=== PATIENT | female | born 1975 | race Caucasian/White ===

== ENCOUNTER 2019-11-18 23:34 | Emergency (ER) | payer OTHER ==
--- NOTE | 2019-11-19 00:23 | PDOC ---
Rapid Medical Evaluation Medical Evaluation: Allergies Allergy/AdvReac Type Severity Reaction Status Date / Time No Known Allergies Allergy Verified 03/04/15 23:46 11/19/19 00:17 HPI: COVID-19 CDC guideline data points: The patient is a 44 y.o F presents with no known exposure to COVID-19 with associated symptoms of fever, dry cough, SOB, sore thorot , nausea, no vomiting no anorexia, no diarrheax 2 days, complicated by this/these comorbidities: . ROS: NEGATIVE: difficulty breathing, shortness of breath, chest pain, lightheadedness, dizziness, nausea, vomiting and diarrhea. Other 12 point ROS reviewed and negative. Exam: General: NAD, Well-Appearing, Awake, Alert Oriented x3. Vital signs stable. ENT: No rhinorrhea or nasal congestion. Neck: FROM, no midline tenderness. Lungs: Clear to auscultation bilaterally without wheezes, rhonchi or rales. Normal excursion. Patient is able to speak in full sentences. Heart: HR: Regular rhythm, S1-S2 present, no murmurs rubs or gallops. Abdomen: Non-distended. MSK/Extremities: No decrease ROM, No obvious deformities. No obvious cyanosis noted. Neuro: Normal Gait, Cranial Nerves II through XII Grossly Intact. Skin: No obvious rashes, bruising. Color Normal Appearing. Assessment/Plan: Cough/fever, consistent with COVID symptoms Patient has a history of this/these comorbidities: none, denies recent travel and known COVID exposure. Patient does not meet testing criteria at this time. Treatment: d/c home vs stable Discharge Disposition - Diagnosis Viral illness - Discharge Dispostion Disposition: HOME Condition at time of disposition: Stable - Referrals Referrals: Brandon Maciel MD [Staff Physician] - - Patient Instructions Printed Discharge Instructions: [facility]-Coronavirus Instructions, [facility] COVID-19 Isolation Protocol Additional Instructions: follow up with the clinic in 1-2 days. Symptoms are COVID like you should Self isolated for 14 days. Return to the ED for worsening symptoms, respiratory distress - Post Discharge Activity
[2019-11-19 01:09] VITALS: BP 135/90; PULSE 62; TEMP 99.5
== END 2019-11-19 01:26 ==
LOC: JER 23:34
DX: B34.9 Viral infection, unspecified (principal)
CPT/HCPCS: 99282-25

== ENCOUNTER 2020-03-01 23:09 | Emergency (ER) | payer OTHER ==
[2020-03-01 23:33] VITALS: BP 130/74; PULSE 57; TEMP 98.1; BMI 26.0
--- NOTE | 2020-03-02 00:09 | PDOC ---
History of Present Illness - General Chief Complaint: Edema Stated Complaint: SWOLLEN FINGER - History of Present Illness Initial Comments: 03/02/20 00:25 44y previously healthy F presenting w sudden onset L 3rd finger swelling/pain distal to ring after 9pm today. Had ring on for long time. Denies numbness, still able to move finger. Past History - Medical History Allergies/Adverse Reactions: Allergies Allergy/AdvReac Type Severity Reaction Status Date / Time No Known Allergies Allergy Verified 03/04/15 23:46 Home Medications: Ambulatory Orders Cephalexin [Keflex] 500 mg PO QID #28 capsule 03/05/15 Pantoprazole Sodium [Protonix -] 40 mg PO DAILY #14 tablet.ec 03/05/15 Cephalexin Monohydrate [Keflex -] 500 mg PO BID #14 capsule 03/02/20 Cephalexin [Keflex] 500 mg PO BID 7 Days #14 capsule 03/02/20 COPD: No - Psycho-Social/Smoking History Smoking History: Never smoked Have you smoked in the past 12 months: No - Substance Abuse Hx (Audit-C & DAST Scrn) How often the patient has a drink containing alcohol: Never Score: In Men: 4 or > Positive; In Women: 3 or > Positive: 0 Screen Result (Pos requires Nsg. Audit-10AR): Negative Review of Systems - Review of Systems Constitutional: No: Chills, Fever HEENTM: No: Eye Pain, Nose Congestion Respiratory: No: Cough, Shortness of Breath Cardiac (ROS): No: Chest Pain, Palpitations ABD/GI: No: Constipated, Diarrhea, Nausea, Vomiting : No: Burning, Dysuria Musculoskeletal: No: Back Pain, Joint Pain Integumentary: No: Bruising, Flushing Neurological: No: Headache, Seizure Psychiatric: No: Anxiety, Depression Endocrine: No: Intolerance to Cold, Intolerance to Heat Hematologic/Lymphatic: No: Anemia, Blood Clots *Physical Exam - Vital Signs Last Vital Signs Temp Pulse Resp BP Pulse Ox 98.1 F 57 L 18 130/74 100 03/01/20 23:31 03/01/20 23:31 03/01/20 23:31 03/01/20 23:31 03/01/20 23:31 - Physical Exam General Appearance: Yes: Nourished, Appropriately Dressed, Mild Distress HEENT: positive: EOMI, KARRIE, Normal Voice, Hearing Grossly Normal. negative: Scleral Icterus (R), Scleral Icterus (L) Respiratory/Chest: positive: Lungs Clear, Normal Breath Sounds. negative: Chest Tender, Respiratory Distress Cardiovascular: positive: Regular Rhythm, S1, S2, Bradycardia. negative: Edema, Murmur Gastrointestinal/Abdominal: positive: Normal Bowel Sounds, Flat, Soft. negative: Tender, Organomegaly Integumentary: positive: Other (L 3rd finger, red, midly tender, swollen, intact sensation to touch, able to move phalanges) Neurologic: positive: Fully Oriented, Alert, Normal Response, Responsive Medical Decision Making - Medical Decision Making 03/02/20 00:26 44y previously healthy F presenting w sudden onset L 3rd finger swelling/pain distal to ring after 9pm today. Removed finger w ring cutter. Neurovascular intact. DC home w keflex, ice, PCP f/u Discharge - Discharge Information Problems reviewed: Yes Clinical Impression/Diagnosis: Swelling of left middle finger Condition: Improved Disposition: HOME - Additional Discharge Information Prescriptions: Cephalexin [Keflex] 500 mg PO BID 7 Days #14 capsule Cephalexin Monohydrate [Keflex -] 500 mg PO BID #14 capsule - Follow up/Referral - Patient Discharge Instructions Additional Instructions: The ring was cut off your finger Apply ice to your finger Take the prescribed keflex as directed Follow up with your primary care doctor --- El anillo te verónica el dedo Aplica hielo en tu dedo [place] el keflex prescrito segn las indicaciones [place]eshia un seguimiento con dumont mdico de atencin primaria. - Post Discharge Activity
[2020-03-02] MEDS ORDERED: CEPHALEXIN MONOHYDRATE 500 MG CAPSULE (UD) PO ONE (00:15)
[2020-03-02] MEDS ORDERED: CEPHALEXIN MONOHYDRATE 500 MG CAPSULE (UD) ONE (00:18)
--- NOTE | 2020-03-02 00:23 | PDOC ---
Attending Attestation - Resident Resident Name: Jann Le - ED Attending Attestation I have performed the following: I have examined & evaluated the patient, The case was reviewed & discussed with the resident, I agree w/resident's findings & plan - HPI HPI: 03/02/20 00:19 Pt comes with left middle ring finger with a ring that is stuck on it. Finger is swollen as pt . has been tugging on it or a few days hoping to dislodge the ring. - Physicial Exam PE: 03/02/20 00:22 Normal exam Left middle ring finger no lacerations. - Medical Decision Making 03/02/20 04:54 ring removed with ring cutter FROM of the middle finger pt has good capillary refill in all fingers 03/02/20 04:54 Pt will follow with PMD; home with Abx Discharge - Discharge Information Problems reviewed: Yes Clinical Impression/Diagnosis: Swelling of left middle finger Condition: Improved Disposition: HOME - Additional Discharge Information Prescriptions: Cephalexin [Keflex] 500 mg PO BID 7 Days #14 capsule Cephalexin Monohydrate [Keflex -] 500 mg PO BID #14 capsule - Follow up/Referral - Patient Discharge Instructions Additional Instructions: The ring was cut off your finger Apply ice to your finger Take the prescribed keflex as directed Follow up with your primary care doctor --- El anillo te verónica el dedo Aplica hielo en tu dedo [place] el keflex prescrito segn las indicaciones [place] un seguimiento con dumont mdico de atencin primaria. - Post Discharge Activity
== END 2020-03-02 00:27 | disposition home or self-care (01) ==
LOC: JER 23:09
DX: M79.89 Other specified soft tissue disorders (principal)
CPT/HCPCS: 99283-25

== ENCOUNTER 2021-03-24 21:31 | Emergency (ER) | payer OTHER ==
[2021-03-24 21:45] VITALS: BP 128/88; PULSE 71; TEMP 97; BMI 22.1
[2021-03-24] MEDS ORDERED: KETOROLAC TROMETHAMINE 30 MG/1 ML VIAL IVPUSH ONE (23:09)
[2021-03-24] MEDS ORDERED: KETOROLAC TROMETHAMINE 30 MG/1 ML VIAL ONE (23:27)
[2021-03-24 23:47] LABS: BASO % 0.8 % (0-2.0); HEMATOCRIT 39.9 % (32.4-45.2); HEMOGLOBIN 13.5 GM/dL (10.7-15.3); LYMPH % 44.8 % (8-40); MCH 28.4 pg (25.7-33.7); MCHC 33.8 g/dl (32.0-36.0); MEAN CELL VOLUME 84.1 fl (80-96); MEAN PLT VOLUME 9.2 fl (7.5-11.1); MONO % 7.4 % (3.8-10.2); PLATELET COUNT 184 10^3/uL (134-434); RBC 4.74 M/mm3 (3.60-5.2); RDW 13.6 % (11.6-15.6); WHITE BLOOD COUNT 7.8 K/mm3 (4.0-10.0)
[2021-03-24 23:57] LABS: CHLORIDE 108 mmol/L (98-107); SODIUM 140 mmol/L (136-145)
[2021-03-24 23:59] LABS: ALBUMIN 3.8 g/dl (3.4-5.0); ANION GAP 7 MMOL/L (8-16); BLOOD UREA NITROGEN 10.6 mg/dL (7-18); CALCIUM 8.5 mg/dL (8.5-10.1); CO2 25 mmol/L (21-32); GLUCOSE,RANDOM 90 mg/dL (74-106)
[2021-03-25 00:02] LABS: CREATININE 0.5 mg/dL (0.55-1.3); SGOT/AST 23 U/L (15-37); SGPT/ALT 39 U/L (13-61)
[2021-03-25 00:04] LABS: BILIRUBIN,TOTAL 0.1 mg/dL (0.2-1); TOT PROT 7.6 g/dl (6.4-8.2)
[2021-03-25 00:05] LABS: ALK PHOS 89 U/L (45-117)
== END 2021-03-25 01:22 | disposition home or self-care (01) ==
LOC: JER 21:31
PROC: 3E0333Z Introduction of Anti-inflammatory into Peripheral Vein, Percutaneous Approach (ICD-10-PCS; principal; 2021-03-24)
DX: M94.0 Chondrocostal junction syndrome [Tietze] (principal)
CPT/HCPCS: 36415; 71046-TC-FY; 80053; 84443; 84484; 84703; 85025; 93005; 93010; 96374; 99285-25